=== PATIENT | female | born 1990 | race African-American/Black ===

== ENCOUNTER 2016-12-21 09:01 | Emergency (ER) | payer MEDICAID ==
[~2016-12-21] VITALS: Ht 162.6 cm; Wt 101.0 kg
[2016-12-21 09:15] VITALS: BP 130/74
[2016-12-21 10:00] LABS: CLARITY URINE CLEAR (CLEAR); COLOR URINE YELLOW (YELLOW); GLUCOSE URINE NEGATIVE (NEGATIVE); KETONES URINE NEGATIVE (NEGATIVE); LEUKOCYTE ESTERASE URINE TRACE (NEGATIVE); NITRITE URINE NEGATIVE (NEGATIVE); OCCULT BLOOD URINE TRACE (NEGATIVE); PROTEIN URINE NEGATIVE (NEGATIVE); SPECIFIC GRAVITY URINE 1.016 (1.005-1.030); UROBILINOGEN URINE 0.2 E.U./dL (0.2-1.0)
[2016-12-21 10:17] LABS: SQUAMOUS EPITHELIAL CELL URINE 1+ /lpf (RARE/1+)
[2016-12-21 10:18] LABS: RBC URINE 0-2 /hpf (0-2); WBC URINE NONE SEEN /hpf (0-2)
[2016-12-21 10:19] LABS: BACTERIA URINE 2+
[2016-12-23 04:14] LABS: CHLAMYDIA TRACHOMATIS NAA Negative (Negative); NEISSERIA GONORRHOEAE NAA Negative (Negative)
== END 2016-12-21 11:00 | disposition home or self-care (01) ==
LOC: ER 10:43
DX: N39.0 Urinary tract infection, site not specified (principal)
CPT/HCPCS: 81001; 81025; 87210; 87491; 87591; 99284; Z7610

== ENCOUNTER 2019-06-27 09:18 | Emergency (ER) | payer MEDICAID ==
[~2019-06-27] VITALS: Ht 162.6 cm; Wt 82.0 kg
[2019-06-27 10:05] VITALS: BP 128/76
== END 2019-06-27 10:06 | disposition home or self-care (01) ==
LOC: ER 09:22
DX: H60.91 Unspecified otitis externa, right ear (principal); R03.0 Elevated blood-pressure reading, without diagnosis of hypertension
CPT/HCPCS: 99282